=== PATIENT | female | born 1970 | race African-American/Black ===

== ENCOUNTER 2020-04-05 18:24 | Emergency (ER) | payer OTHER ==
[~2020-04-05] VITALS: Ht 167.6 cm; Wt 68.0 kg
[2020-04-05] MEDS ORDERED: FLEXERIL PO (20:25)
[2020-04-05] MEDS ORDERED: IBUPROFEN 600600 M1 PO (20:25)
[2020-04-05 21:49] VITALS: BP 128/103
[2020-04-06] MEDS ORDERED: CYCLOBENZAPRINE10 MG PO (14:04)
== END 2020-04-05 21:51 | disposition home or self-care (01) ==
LOC: ER 18:24
DX: S80.02XA Contusion of left knee, initial encounter (principal); S60.222A Contusion of left hand, initial encounter; S20.211A Contusion of right front wall of thorax, initial encounter; V47.5XXA Car driver injured in collision with fixed or stationary object in traffic accident, initial encounter; Y93.89 Activity, other specified; Y92.89 Other specified places as the place of occurrence of the external cause; Y99.8 Other external cause status